=== PATIENT | female | born 1965 | race Caucasian/White ===

== ENCOUNTER 2020-01-26 16:54 | Emergency (ER) | payer OTHER ==
[~2020-01-26] VITALS: Ht 162.6 cm; Wt 73.9 kg
[~2020-01-26 16:54] MED LIST: ABILIFY 5 MG TAB5 MG PO; BENTYL 10 MG CA10 M1 PO; CALCIUM 600 +1 EAC1 PO; CANASA1000 MG RECTAL; CIPRO500 MG PO; CLONAZEPAM 0.50.5 M1 PO; FOSAMAX 70 MG T70 MG PO; HYDROCODON-ACE1 EAC7 PO; LEVSIN-SL0.125 MG PO; LIALDA1.2 GM PO; PREDNISONE 10 M10 MG PO; PREDNISONE 20 M20 MG PO; PROLIA60 MG/1 ML SQ; REMICADE 1100 MG/VIA IV; TRAMADOL 50 MG50 MG PO; TRILEPTAL150 MG PO; TUMS PO; UNICOMPLEX M TA1 TA1 PO; WELLBUTRIN XL150 MG PO
[2020-01-26] MEDS ORDERED: ALLEGRA ALLERGY60 MG PO (17:08)
[2020-01-26] MEDS ORDERED: REMICADE 1100 MG/VIA IVPB (17:09)
[2020-01-26 17:20] LABS: URINE BILIRUBIN NEGATIVE (Negative); URINE BLOOD 1+ (Negative); URINE CLARITY SL CLOUDY; URINE COLOR YELLOW; URINE GLUCOSE-RANDOM NEGATIVE (Negative); URINE KETONES 1+ (Negative); URINE PROTEIN 1+ (Negative); URINE UROBILINOGEN 0.2 E.U./dl (0.2-1.0)
[2020-01-26 17:21] LABS: URINE LEUKOCYTES-REFLEX 2+ (Negative); URINE NITRITE-REFLEX POSITIVE (Negative)
[2020-01-26 17:25] LABS: BACTERIA-REFLEX >30 Many /HPF (None Seen); MUCUS None Seen strn/LPF (None Seen); SQUAMOUS >10 Many /LPF (0-3); URINE WBC-REFLEX >25 Many /HPF (0-5)
[2020-01-26 17:26] LABS: CASTS None Seen /LPF (None Seen); CRYSTALS None Seen /LPF (None Seen); URINE RBC 0-2 Rare /HPF (0-2)
[2020-01-26 17:27] LABS: WBC CLUMPS Few (None Seen)
[2020-01-26 17:40] LABS: ABSOLUTE EOSINOPHILS 0.1 thou/uL (0.0-0.7); ABSOLUTE MONOCYTES 0.9 thou/uL (0.0-1.2); ABSOLUTE NEUTROPHILS 6.3 thou/uL (1.6-8.1); BASOPHILS 0.4 %; EOSINOPHILS 0.6 %; HEMATOCRIT 37.7 % (37.0-47.0); HEMOGLOBIN 12.7 gm/dL (12.0-15.0); LYMPHOCYTES 21.3 %; MCH 30.6 pg (26.0-34.0); MCHC 33.8 g/dL (28.0-37.0); MCV 90.5 fL (80.0-100.0); MONOCYTES 9.2 %; MPV 7.8 fl. (7.2-11.1); NUCLEATED RBCS 0 /100WBC; PLATELET COUNT* 226 thou/uL (150-400); POLYS 68.5 %; RBC 4.17 mil/uL (4.20-5.00); RDW-CV 12.9 % (10.5-14.5); WBC 9.3 thou/uL (4.0-11.0)
[2020-01-26 17:47] LABS: CALCIUM 8.4 mg/dL (8.5-10.1); POTASSIUM 3.6 mmol/L (3.5-5.1)
[2020-01-26 17:52] LABS: ALBUMIN 3.6 g/dL (3.4-5.0); TOTAL BILIRUBIN 0.3 mg/dL (<0.1-1.0); TOTAL PROTEIN 7.4 g/dL (6.4-8.2)
[2020-01-26] MEDS ORDERED: NORCO 5-325 TA1 EAC2 PO (19:08)
[2020-01-26] MEDS ORDERED: BACTRIM DS TAB1 EACH PO (19:08)
[2020-01-26] MEDS ORDERED: FLOMAX0.4 MG PO (19:08)
[2020-01-26] MEDS ORDERED: CIPRO500 MG PO (19:11)
[2020-01-26 19:29] VITALS: BP 109/45
== END 2020-01-26 19:30 | disposition home or self-care (01) ==
LOC: M.ERS 16:54
PROVIDERS: Family Medicine
DX: N39.0 Urinary tract infection, site not specified (principal); M81.0 Age-related osteoporosis without current pathological fracture; F32.9 Major depressive disorder, single episode, unspecified; F41.9 Anxiety disorder, unspecified; Z87.442 Personal history of urinary calculi; Z98.51 Tubal ligation status; Z88.8 Allergy status to other drugs, medicaments and biological substances

== ENCOUNTER 2020-02-07 17:34 | Emergency (ER) | payer OTHER ==
[~2020-02-07] VITALS: Ht 162.6 cm; Wt 73.5 kg
[~2020-02-07 17:34] MED LIST changes: +ALLEGRA ALLERGY60 MG PO; +BACTRIM DS TAB1 EACH PO; +FLOMAX0.4 MG PO; +NAPROSYN500 MG PO; +NORCO 5-325 TA1 EAC2 PO; +REMICADE 1100 MG/VIA IVPB; +SENNA-DOCUSATE1 EAC1 PO
[2020-02-07 18:45] LABS: INFLUENZA A ANTIGEN Negative (Negative); INFLUENZA B ANTIGEN Negative (Negative)
[2020-02-07] MEDS ORDERED: TESSALON PERLE100 MG PO (20:59)
[2020-02-07] MEDS ORDERED: PROMETH-CODEIN 65 ML PO (20:59)
[2020-02-07] MEDS ORDERED: DOXYCYCLINE 10100 MG PO (20:59)
[2020-02-07 21:10] VITALS: BP 126/66
== END 2020-02-07 21:12 | disposition home or self-care (01) ==
LOC: M.ERS 17:34
PROVIDERS: Nurse Practitioner Family
DX: J06.9 Acute upper respiratory infection, unspecified (principal); Z20.828 Contact with and (suspected) exposure to other viral communicable diseases; J45.909 Unspecified asthma, uncomplicated; Z88.8 Allergy status to other drugs, medicaments and biological substances; Z87.442 Personal history of urinary calculi; Z98.51 Tubal ligation status